=== PATIENT | male | born 1990 | race Caucasian/White ===

== ENCOUNTER 2017-07-20 10:28 | Observation (INO) ==
[2017-07-20 10:53] LABS: Bilirubin,Urine Negative (Negative); Blood,Urine Negative (Negative); Clarity,Urine Clear (Clear); Color,Urine Yellow (Yellow); Glucose,Urine (UA) Normal (Normal); Ketones,Urine Negative (Negative); Leukocyte Esterase,Urine Negative (Negative); Nitrite,Urine Negative (Negative); Protein,Urine Trace mg/dL (Neg-Trace); Specific Gravity,Urine 1.026 (1.010-1.025); Urobilinogen,Urine Normal (Normal)
[2017-07-20 10:54] LABS: Bacteria,Urine None Seen per hpf (None-Few); Hyaline Casts,Urine None Seen per lpf (None-Few); Squamous Epithelial Cell,Urine Many per lpf (None-Few); WBC,Urine 0-3 per hpf (0-3)
[2017-07-20] MEDS ORDERED: Ketorolac 15 MG/ML VIAL IVP ONE (11:04)
[2017-07-20] MEDS ORDERED: 0.9 % Sodium Chloride 1,000 ML IVC ONE (11:04)
[2017-07-20] MEDS ORDERED: Ondansetron 4 MG/2 ML VIAL IVP ONE (11:04)
--- NOTE | 2017-07-20 11:08 | Emergency Department Note ---
Disposition Clinical Impression: Appendicitis Qualifiers: Appendicitis type: acute appendicitis Acute appendicitis type: with localized peritonitis Qualified Code(s): K35.3 - Acute appendicitis with localized peritonitis Disposition: Admitted As Inpatient Condition: Good Abdominal Pain HPI - General Chief Complaint: ED Abdominal Pain Stated Complaint: Abd Pain/Food poisoning Time Seen by Provider: 07/20/17 10:59 Source: patient Mode of arrival: private vehicle Limitations: no limitations Nursing Notes Reviewed: Yes Vital Signs Reviewed: Yes - History of Present Illness HPI Narrative: 27-year-old male history of ADHD presents to the ER due to nausea vomiting and abdominal pain. Patient states yesterday evening that he had pizza as well as with the rest of his family. Reports that he did not fell while going to bed but woke up this morning vomiting. Family reports they ate the same thing and one person felt nauseous but no vomiting from anyone else. He reports he woke up with lower abdominal pain described as sharp. He has been nauseated with vomiting ever since. He denies fevers, chest pain, shortness of breath, dysuria , hematuria, diarrhea or constipation. No history of abdominal surgeries. No other complaints. Pt Subjective Complaint: abdominal pain Onset (ago): hour(s) Consistency: constant Location: LLQ, RLQ Pain Severity: moderate Pain Scale: 7 Quality: stabbing Radiation: none Migration to: no migration Improves with: nothing Worsens with: nothing Context: possible food poisoning Associated symptoms: Reports: nausea, vomiting. Denies: diarrhea, fever, constipation, dysuria, hematuria Treatments prior to arrival: none - Related Data Home Medications Medication Instructions Recorded Confirmed Dextroamphetamine/Amphetamine 20 mg PO DAILY 07/20/17 07/20/17 [Adderall Xr 20 mg Capsule] Allergies Allergy/AdvReac Type Severity Reaction Status Date / Time No Known Allergies Allergy Verified 07/20/17 10:37 All systems ED: reviewed and negative except as stated. Constitutional: Denies: fever, chills Cardiovascular: Denies: chest pain Respiratory: Denies: dyspnea Gastrointestinal: Reports: abdominal pain, nausea, vomiting. Denies: diarrhea Genitourinary: Denies: dysuria, hematuria Abdominal Pain PMH - Past Medical History Medical history: Reports: no medical history Male Surgical History: Reports: no surgical history Psychiatric history: Reports: ADHD, depression, other - Social History Smoking status: Never smoker Alcohol use: Reports: none Drug use: Reports: none Physical Exam - General Limitations: no limitations General appearance: alert, in no apparent distress - Head Head exam: atraumatic, normocephalic - Eye Eye exam: Present: normal appearance - ENT ENT exam: normal exam - Neck Neck exam: Present: normal inspection - Chest Chest inspection: Present: normal inspection, symmetric chest wall rise - Respiratory Respiratory exam: Present: normal lung sounds bilaterally - Cardiovascular Cardiovascular exam: Present: regular rate, normal rhythm, normal heart sounds - Abdominal Exam Abdominal exam: Present: soft, tenderness (Moderate tenderness to palpation in the right lower quadrant, suprapubic and left lower quadrant without rigidity or distention) - Extremities Exam Extremities exam: Present: normal inspection, full ROM - Expanded Upper Extremity Exam Shoulder exam: Present: normal inspection, full ROM Arm exam: Present: normal inspection, full ROM Elbow exam: Present: normal inspection, full ROM Forearm/Wrist exam: Present: normal inspection, full ROM Hand exam: Present: normal inspection, full ROM - Expanded Lower Extremity Exam Hip/Pelvis exam: Present: normal inspection, full ROM Upper leg exam: Present: normal inspection, full ROM Knee exam: Present: normal inspection, full ROM Lower leg exam: Present: normal inspection, full ROM Ankle exam: Present: normal inspection, full ROM Foot/toe exam: Present: normal inspection, full ROM - Neurological Exam Neurological exam: Present: alert - Psychiatric Psychiatric exam: Present: anxious - Skin Skin exam: Present: warm, dry, intact Course Course Narrative: Patient seen and examined. Although he could have food poisoning from what he ate yesterday, it seems a little bizarre that the rest of his family wasn't sick as they ingested the same food. Given these findings we will pursue a CT scan to evaluate for potential appendicitis. Labs and urinalysis ordered. We will treat his pain starting with anti-inflammatories and Zofran for nausea as well as a liter of saline. - Reevaluation(s) Reevaluation #1: Discussed results of imaging and labs with the patient. Reports he last had something to drink at 7 AM this morning. We will give him a dose of Zosyn and speak with surgery. Reevaluation #2: Evaluated by surgeon in the emergency department. Reports the patient will go to the OR from here for management. - Consultations Consultation #1: I spoke with the on-call surgeon Dr. Bautista. Discussed the patient's history and exam imaging labs and interventions to date. Vital Signs Temperature 98.5 F 07/20/17 10:34 Pulse Rate 73 07/20/17 10:34 Respiratory Rate 18 07/20/17 10:34 Blood Pressure 141/92 07/20/17 10:34 O2 Sat by Pulse Oximetry 94 07/20/17 10:34 Temperature 98.5 F 07/20/17 10:34 Pulse Rate 75 07/20/17 13:01 Respiratory Rate 16 07/20/17 13:01 Blood Pressure 121/75 07/20/17 13:01 O2 Sat by Pulse Oximetry 98 07/20/17 13:01 Oxygen Delivery Oxygen Delivery Room Air Abdominal Pain - MDM Narrative Medical decision making narrative: 27-year-old male presents to the ER due to lower abdominal pain. Thought he might have food poisoning because he had pizza last night and became nauseous. He is afebrile here. CT scan demonstrates acute uncomplicated diverticulitis with questionable mesenteric panniculitis. Mild leukocytosis. Patient given a liter of fluids as well as Zosyn. Case discussed with surgery. Admitted for appendicitis. - Lab Data Lab results reviewed: Yes I reviewed the patient's lab results. Result diagrams: 07/20/17 11:38 07/20/17 11:38 Lab Results 07/20/17 07/20/17 07/20/17 Range/Units 10:44 11:38 11:38 WBC 13.7 H (4.3-11.1) K/mcL RBC 5.34 (4.19-5.50) M/mcL Hgb 15.3 (12.9-16.9) g/dL Hct 45.1 (37.5-50.1) % MCV 84.5 (83.0-100.0) fL MCH 28.7 (28.0-33.3) pg MCHC 33.9 (31.6-35.5) g/dL RDW 12.8 (11.5-14.5) % Plt Count 204 (140-400) K/mcL MPV 9.5 (9.4-12.4) fL Immature Gran % 0.2 (0-4) % Seg Neutrophils % 79.4 % Lymphocytes % 11.6 % Monocytes % 7.4 % Eosinophils % 1.0 % Basophils % 0.4 % Neutrophils # 10.8 H (1.6-8.9) K/mcL Lymphocytes # 1.6 (0.6-4.6) K/mcL Monocytes # 1.0 (0.0-1.3) K/mcL Eosinophils # 0.1 (0.0-0.6) K/mcL Basophils # 0.1 (0.0-0.2) K/mcL Sodium 140 (136-145) mEq/L Potassium 4.0 (3.5-4.5) mEq/L Chloride 107 (98-109) mEq/L Carbon Dioxide 23 (19-29) mEq/L BUN 11 (8-26) mg/dL Creatinine 0.83 (0.72-1.25) mg/dL Est GFR ( Amer) > 60 (> 60) Est GFR (Non-Af Amer) > 60 (> 60) BUN/Creatinine Ratio 13 (6-26) Glucose 124 H (70-99) mg/dL Calculated Osmolality 291 (280-300) Calcium 9.2 (8.6-10.8) mg/dL Total Bilirubin 1.2 (0.2-1.2) mg/dL Direct Bilirubin 0.4 (0.0-0.5) mg/dL Indirect Bilirubin 0.8 (0.0-1.2) mg/dL AST 45 H (5-34) Units/L ALT 69 H (0-55) Units/L Alkaline Phosphatase 120 (38-126) Units/L Serum Total Protein 7.0 (6.0-8.3) g/dL Albumin 3.8 (3.5-5.0) g/dL Globulin 3.2 (2.4-3.5) g/dL Albumin/Globulin Ratio 1.2 (1.1-2.2) Lipase < 10 (8-78) Units/L Urine Color Yellow (Yellow) Urine Clarity Clear (Clear) Urine pH 6.0 (5.0-8.0) pH Units Ur Specific [place] 1.026 H (1.010-1.025) Urine Protein Trace (Neg-Trace) mg/dL Urine Glucose (UA) Normal (Normal) mg/dL Urine Ketones Negative (Negative) mg/dL Urine Blood Negative (Negative) Urine Nitrite Negative (Negative) Urine Bilirubin Negative (Negative) Urine Urobilinogen Normal (Normal) mg/dL Ur Leukocyte Esterase Negative (Negative) Urine Microscopic RBC 3-5 H (0-3) per hpf Urine Microscopic WBC 0-3 (0-3) per hpf Ur Squamous Epith Cells Many H (None-Few) per lpf Urine Bacteria None Seen (None-Few) per hpf Hyaline Casts None Seen (None-Few) per lpf Ur Culture Indicated? NO (NO) - Radiology Data Radiology results reviewed: Yes I reviewed the patient's radiology results. Abdomen/Pelvis CT 07/20/17 11:04 IMPRESSION: 1. Acute uncomplicated appendicitis. 2. Haziness of the central mesentery with prominent mesenteric lymph nodes may represent mesenteric panniculitis. A short-term follow up CT in 3 to 6 months is recommended as other etiologies such as lymphoma could have a similar appearance. D/ / 07/20/2017 12:51:32 Sarah Acosta MD / vadim Interpreting Provider: Sarah Acosta MD Attestation Statement - Attestation Attestation: I examined this patient and my medical decision-making was reviewed with the Resident Physician, Dr. Granados. I agree with the documented findings, disposition and treatment plan as described except to the extent set forth below. Patient is a 19-year-old white male who presents to the emergency room today with complaints of nausea vomiting and abdominal pain which began last night following eating a pizza with his family. Patient states he went to bed and "not feeling well" and when he awoke this morning he was having intractable nausea and vomiting and generalized lower abdominal pain. No one in the family has been ill since eating the pizza, patient's had no bowel changes associated with this vomiting, no fevers or chills, no pre- existing GI or bowel pathology. Patient is afebrile with stable vital signs on arrival. Agree with patient's physical exam findings as documented. She received IV pain medication and antiemetics lab evaluation was performed including urinalysis and patient was sent for CT scanning due to the prominent right lower quadrant tenderness. Patient received adequate pain relief and has not vomited while in the department. Patient's labs show leukocytosis with a left shift. Remainder of labs were within normal limits. CT of abdomen and pelvis shows acute appendicitis, uncomplicated no evidence of perforation. Patient was continued nothing by mouth status, IV antibiotics were initiated and general surgery was called. The surgeon saw the patient in the ED and arrange to have them centrically to the OR for appendectomy. Patient remained hemodynamically stable while in the ED.
[2017-07-20 11:45] LABS: Basophils # 0.1 K/mcL (0.0-0.2); Basophils % 0.4 %; Eosinophils # 0.1 K/mcL (0.0-0.6); Hematocrit 45.1 % (37.5-50.1); Hemoglobin 15.3 g/dL (12.9-16.9); Immature Granulocytes % 0.2 % (0-4); Lymphocytes # 1.6 K/mcL (0.6-4.6); Lymphocytes % 11.6 %; Mean Corpuscular HGB Conc 33.9 g/dL (31.6-35.5); Mean Corpuscular Hemoglobin 28.7 pg (28.0-33.3); Mean Corpuscular Volume 84.5 fL (83.0-100.0); Mean Platelet Volume 9.5 fL (9.4-12.4); Monocytes % 7.4 %; Neutrophils # 10.8 K/mcL (1.6-8.9); Platelet Count 204 K/mcL (140-400); Red Blood Count 5.34 M/mcL (4.19-5.50); Red Cell Distribution Width 12.8 % (11.5-14.5); Segmented Neutrophils % 79.4 %
[2017-07-20 12:02] LABS: Alanine Aminotransferase 69 Units/L (0-55); Albumin 3.8 g/dL (3.5-5.0); Albumin/Globulin Ratio 1.2 (1.1-2.2); Alkaline Phosphatase 120 Units/L (38-126); Aspartate Amino Transferase 45 Units/L (5-34); BUN/Creatinine Ratio 13 (6-26); Bilirubin,Direct 0.4 mg/dL (0.0-0.5); Bilirubin,Indirect 0.8 mg/dL (0.0-1.2); Bilirubin,Total 1.2 mg/dL (0.2-1.2); Blood Urea Nitrogen 11 mg/dL (8-26); Calcium 9.2 mg/dL (8.6-10.8); Carbon Dioxide 23 mEq/L (19-29); Chloride 107 mEq/L (98-109); Globulin 3.2 g/dL (2.4-3.5); Glucose 124 mg/dL (70-99); Lipase < 10 Units/L (8-78); Osmolality,Calculated 291 (280-300); Sodium 140 mEq/L (136-145); eGFR For African Americans > 60 (> 60); eGFR For Non-African Americans > 60 (> 60)
[2017-07-20] MEDS ORDERED: Piperacillin/Tazobactam 3.375 GM in D5% in Water 50 ML IVPB ONE ×2 (13:00→13:45)
--- NOTE | 2017-07-20 13:17 | General Surg History&Physical ---
Date of Encounter: 07/20/17 Time of Encounter: 13:15 Assessment and Plan (1) Appendicitis Current Visit: Yes Status: Acute Plan for laparoscopic appendectomy. Risks, benefits, and expected outcomes explained the patient and he agrees to proceed. The assessment and plan as outlined above was discussed with the patient and/or family members who expressed understanding and agreement. All questions were answered. Qualifiers: Appendicitis type: acute appendicitis Acute appendicitis type: with localized peritonitis Qualified Code(s): K35.3 - Acute appendicitis with localized peritonitis History of Present Illness Chief complaint: Right Lower quadrant abdominal pain HPI: Mr. Hilton is a 27 year old male approximately 12 hours of right lower quadrant abdominal pain. Patient has had obstipation. He reports emesis this morning. He has also associated anorexia. He denies any fever at this point. He denies any other pain or symptoms such as this in the past. Past Med Surg Social Fam HX - Past Medical History Medical history: no medical history, other (ADHD) Psychiatric history: ADHD, depression, other - Past Surgical History Surgical History: non-contributory - Social History Smoking Status: Never smoker Smokeless Tobacco Status: No Alcohol use: none Drug use: none Medications and Allergies Dextroamphetamine/Amphetamine [Adderall Xr 20 mg Capsule] 20 mg PO DAILY [History] 3 Allergy/AdvReac Type Severity Reaction Status Date / Time No Known Allergies Allergy Verified 07/20/17 10:37 Review of Systems All systems PM: reviewed and no additional remarkable complaints except as stated All systems PM: A 10-system review of systems was performed and is negative for pertinent findings except as documented above in the HPI. General Surgery Exam Initial Vital Signs Temp Pulse Resp BP Pulse Ox 98.5 F 73 18 141/92 94 07/20/17 10:34 07/20/17 10:34 07/20/17 10:34 07/20/17 10:34 07/20/17 10:34 - General physical appearance well nourished, no distress - ENT normal nares, normal mucosa - Neck trachea midline - Respiratory normal respiratory effort, clear to auscultation - Cardiovascular Cardiovascular exam: Present: RRR - Abdomen Abdomen general surgery: Present: soft, tender Abdominal Tenderness: Present: RLQ - Integumentary Integumentary general surgery: Present: warm and dry, no abnormal pigmentation - Neurologic Present: CN 2-12 grossly intact, normal sensation - Musculoskeletal Present: normal gait, normal posture - Psychiatric Psychiatric general surgery: Present: A&Ox3, speech is normal Results - Labs 07/20/17 11:38 07/20/17 11:38 Abnormal lab results WBC 13.7 K/mcL (4.3-11.1) H 07/20/17 11:38 Neutrophils # 10.8 K/mcL (1.6-8.9) H 07/20/17 11:38 Glucose 124 mg/dL (70-99) H 07/20/17 11:38 AST 45 Units/L (5-34) H 07/20/17 11:38 ALT 69 Units/L (0-55) H 07/20/17 11:38 Ur Specific [place] 1.026 (1.010-1.025) H 07/20/17 10:44 Urine Microscopic RBC 3-5 per hpf (0-3) H 07/20/17 10:44 Ur Squamous Epith Cells Many per lpf (None-Few) H 07/20/17 10:44 Diabetes panel 07/20/17 Range/Units 11:38 Sodium 140 (136-145) mEq/L Potassium 4.0 (3.5-4.5) mEq/L Chloride 107 (98-109) mEq/L Carbon Dioxide 23 (19-29) mEq/L BUN 11 (8-26) mg/dL Creatinine 0.83 (0.72-1.25) mg/dL Glucose 124 H (70-99) mg/dL Calcium 9.2 (8.6-10.8) mg/dL AST 45 H (5-34) Units/L ALT 69 H (0-55) Units/L Alkaline Phosphatase 120 (38-126) Units/L Albumin 3.8 (3.5-5.0) g/dL Calcium panel 07/20/17 Range/Units 11:38 Calcium 9.2 (8.6-10.8) mg/dL Albumin 3.8 (3.5-5.0) g/dL Pituitary panel 07/20/17 Range/Units 11:38 Sodium 140 (136-145) mEq/L Potassium 4.0 (3.5-4.5) mEq/L Chloride 107 (98-109) mEq/L Carbon Dioxide 23 (19-29) mEq/L BUN 11 (8-26) mg/dL Creatinine 0.83 (0.72-1.25) mg/dL Glucose 124 H (70-99) mg/dL Calcium 9.2 (8.6-10.8) mg/dL Adrenal panel 07/20/17 Range/Units 11:38 Sodium 140 (136-145) mEq/L Potassium 4.0 (3.5-4.5) mEq/L Chloride 107 (98-109) mEq/L Carbon Dioxide 23 (19-29) mEq/L BUN 11 (8-26) mg/dL Creatinine 0.83 (0.72-1.25) mg/dL Glucose 124 H (70-99) mg/dL Calcium 9.2 (8.6-10.8) mg/dL Total Bilirubin 1.2 (0.2-1.2) mg/dL AST 45 H (5-34) Units/L ALT 69 H (0-55) Units/L Alkaline Phosphatase 120 (38-126) Units/L Albumin 3.8 (3.5-5.0) g/dL All other labs normal.
[2017-07-20] MEDS ORDERED: Ringers Solution, Lactated 1,000 ML IVC SCH (13:45)
--- NOTE | 2017-07-20 13:53 | Anesthesia Evaluation PreOp ---
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 History: Other (ADHD, depression) Other Medical History: Denies Any Significant HX Anesthesia History: No Prior Anesthetic Complications (never experienced anesthesia previously) Alcohol Use: none Drug use: none Medications and Allergies Dextroamphetamine/Amphetamine [Adderall Xr 20 mg Capsule] 20 mg PO DAILY [History] 3 Allergy/AdvReac Type Severity Reaction Status Date / Time No Known Allergies Allergy Verified 07/20/17 10:37 - Meds/Allergy Pre-op Review Medications Reviewed: Yes Allergies Reviewed: Yes Beta Blockers on Current Med List: No Anesthesia Results - Labs 07/20/17 11:38 07/20/17 11:38 - Imaging EKG: report reviewed, image reviewed (SR; minimal voltage criteria for LVH ( consider normal variant)) Anesthesia Exam Last Vital Signs Temp 98.5 F 07/20/17 10:34 Pulse 75 07/20/17 13:01 Resp 16 07/20/17 13:01 BP 121/75 07/20/17 13:01 Pulse Ox 98 07/20/17 13:01 Weight: 101 kg NPO (# of Hours): > 8 hrs - HEENT Pupil (Motor): Pupils equal, EOMI Mallampati: II Teeth: Poor dentition (multiple broken and potentially loose teeth) Oral Opening: Greater than 3 - RESOURCE SPECIALIST TEACHER LOC: Oriented [employer]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
[2017-07-20] MEDS ORDERED: *HR* HYDROmorphone 2 MG/ML SYRINGE ONE (14:34)
[2017-07-20] MEDS ORDERED: *HR* Midazolam HCl 2 MG/2 ML VIAL ONE (14:36)
[2017-07-20] MEDS ORDERED: *HR* Propofol 200 MG/20 ML VIAL IVP ONE (14:36)
[2017-07-20] MEDS ORDERED: *HR* FentaNYL (PF) 100 MCG/2 ML VIAL ONE (14:36)
--- NOTE | 2017-07-20 15:12 | Operative Note ---
Date of procedure: 07/20/17 Pre-op diagnosis: Acute appendicitis Post-op diagnosis: same Procedure: Laparoscopic appendectomy Anesthesia: HERNAN Surgeon: Diogenes Bautista Estimated blood loss (cc): 5 Condition: stable Disposition: same day Procedure in Detail: After informed consent, patient was taken to the operating room placed in supine position. After adequate sedation anesthesia the abdomen was prepped and draped. A 12 mm cannula was placed in the umbilicus. A 5 mm cannulas placed in suprapubic region and the left lower quadrant. Camera was inserted and the abdomen after a pneumoperitoneum. 2 Marline graspers were used to identify the base of the appendix. A appendiceal window was created. A EVERARDO endoscopic stapler was placed across the base. A vascular load was placed across the mesoappendix. Once the appendix was was placed in an Endobag and removed through the umbilicus. The right lower quadrant was suctioned dry no bleeding was identified. Remainder the pneumoperitoneum was evacuated. The umbilicus was closed with an 0 Vicryl suture in [id number] fashion. Skin was closed with 4-0 Vicryl suture and Dermabond.
[2017-07-20] MEDS: *HR* HYDROmorphone (PF) 1 MG/ML SYRINGE IVP PRN ×2 (15:25→15:35)
[2017-07-20] MEDS ORDERED: *HR* HYDROmorphone (PF) 1 MG/ML SYRINGE ONE (15:25)
--- NOTE | 2017-07-20 15:37 | Discharge Summary ---
Date of Encounter: 07/20/17 Time of Encounter: 15:34 - Discharge Diagnosis (1) Appendicitis Priority: Primary Status: Resolved Qualifiers: Appendicitis type: acute appendicitis Acute appendicitis type: with localized peritonitis Qualified Code(s): K35.3 - Acute appendicitis with localized peritonitis - Discharge Medications Prescriptions: OxyCODONE/APAP 5/325 [Percocet 5/325 MG] 1 each PO Q4HR PRN #26 tablet PRN Reason: Pain Docusate [Colace] 100 mg PO BID #30 capsule Home Medications: Dextroamphetamine/Amphetamine [Adderall Xr 20 mg Capsule] 20 mg PO DAILY [History] Docusate [Colace] 100 mg PO BID #30 capsule 07/20/17 [Rx] OxyCODONE/APAP 5/325 [Percocet 5/325 MG] 1 each PO Q4HR PRN #26 tablet 07/20/17 [Rx] Allergies/Adverse Reactions: 3 Allergy/AdvReac Type Severity Reaction Status Date / Time No Known Allergies Allergy Verified 07/20/17 10:37 General Surgery Exam Initial Vital Signs Temp Pulse Resp BP Pulse Ox 98.5 F 73 18 141/92 94 07/20/17 10:34 07/20/17 10:34 07/20/17 10:34 07/20/17 10:34 07/20/17 10:34 Date of admission: 07/20/17 13:33 Primary care physician: Karen Terrell DO Discharging clinician: Diogenes Mendez [facility]) Anticipated date of discharge: 07/20/17 - Patient Status Disposition: Home, Self-Care Condition: Good Functional capacity at discharge: independent ambulation Overall status at discharge: patient is progressing back to baseline - Discharge Instructions Follow Up With: Karen Terrell DO [Primary Care Provider] - Gabriella Fulton CNP [Advanced Practice Nurse] - 07/28/17 9:45 am (surgery follow -up) Additional Instructions: #1 may shower 07/21/17, no tub bath for 2 weeks #2 wash incisions with soap and water and pat dry daily #3 no lifting, pushing, pulling more than 15 pounds for the next 2 weeks #4 no driving until off narcotics for 24 hours and able to safely react in the car #5 may climb stairs - Diet and Activity Activity: increase activity as tolerated Diet: advance to your usual diet - Hospital Course Hospital course: Mr. Hilton is a 27 year old male presented to the hospital with complaints of acute onset of abdominal pain. He was found to have acute appendicitis. He was started on IV antibiotics and taken to the operating room for a laparoscopic appendectomy with Dr. Bautista. His surgery was uncomplicated we will plan for discharge to home when he meets discharge criteria including: Tolerating liquids without nausea or vomiting, vital signs are stable and afebrile, pain is well controlled, voiding and ambulating without difficulty. We will plan for outpatient follow-up in the next 10-14 days. - Time Spent with Patient Total time spent providing and/or coordinating discharge services: Less than 30 minutes - Attending Attestation For this encounter, I have reviewed the [employer] or PA documentation, treatment plan, and medical decision making; and I have had face to face time with this patient.
--- NOTE | 2017-07-20 15:40 | Anesthesia Evaluation Post Op ---
Date of Encounter: 07/20/17 Time of Encounter: 15:39 - Vital Signs Vital Signs: Last Vital Signs Temp 97.2 F L 07/20/17 15:11 Pulse 86 07/20/17 15:31 Resp 16 07/20/17 15:31 BP 131/91 07/20/17 15:31 Pulse Ox 93 07/20/17 15:31 - Lungs Lungs: Clear Ascult./Percussion - Airway Airway: Non-obstructed - Cardiovascular Regular Rate - Mental Status Mental Status: Alert & Oriented, Answers Appropriately - Pain Pain Scale: 3 - Nausea Vomiting Nausea Vomiting: Not Present - Hydration Hydration: NPO - Discharge PostOp Status: Transfer Patient to floor
[2017-07-20] MEDS ORDERED: 0.9 % Sodium Chloride 1,000 ML IVC SCH (16:49)
[2017-07-20] MEDS ORDERED: Ondansetron 4 MG/2 ML VIAL IVP PRN (16:49)
[2017-07-20] MEDS ORDERED: *HR* HYDROmorphone (PF) 1 MG/ML SYRINGE IVP PRN (16:49)
[2017-07-20] MEDS ORDERED: Acetaminophen 325 MG TABLET PO PRN (16:49)
[2017-07-20] MEDS ORDERED: *HR* OxyCODONE/APAP 5/325 TABLET PO PRN (16:49)
[2017-07-20] MEDS ORDERED: Naloxone 0.4 MG/ML INJ IVP PRN (16:49)
[2017-07-20 19:39] VITALS: BP 101/61
--- NOTE | 2017-07-21 18:00 | Electrocardiograph Report ---
[place] [id number] Test Date: 2017-07-20 Pat Name: Waqas Hilton Department: 102 Room: 3A Gender: M [employer] Program Coordinator: Ambar : 1990 Requested By: Diogenes Bautista Order Number: [id number] Reading MD: Guanako Barnett MD Measurements Intervals [place] Rate: 78 P: 44 MN: 185 QRS: -6 QRSD: 91 T: 10 QT: 385 QTc: 418 Interpretive Statements SINUS RHYTHM MINIMAL VOLTAGE CRITERIA FOR LVH, CONSIDER NORMAL VARIANT Electronically Signed On 07-21-2017 17:59:14 EST by Guanako Barnett MD
== END 2017-07-20 21:32 | disposition home or self-care (01) ==
LOC: 3ANU 10:28 → EMEROO 10:28 → 3ANU 13:34
PROVIDERS: ADMIT Surgery; ATTEND Surgery